=== PATIENT | female | born 1955 | race Caucasian/White ===

== ENCOUNTER → 2020-06-06 | Emergency (ER) | payer OTHER ==
[~2020-06-06] VITALS: Ht 154.9 cm; Wt 66.2 kg
[~2020-06-06] MED LIST: LAMOTRIGINE; TOPROL XL25 M1
== END | disposition home or self-care (01) ==
LOC: ER 19:52
DX: S01.511A Laceration without foreign body of lip, initial encounter (principal); T14.8XXA Other injury of unspecified body region, initial encounter; W18.39XA Other fall on same level, initial encounter; Y93.01 Activity, walking, marching and hiking; Y92.480 Sidewalk as the place of occurrence of the external cause; Y99.8 Other external cause status

== ENCOUNTER 2021-03-25 08:00 | Outpatient (CLI) | payer OTHER | END 2021-03-25 08:30 | disposition home or self-care (01) | LOC: PPH VACUNA 08:00 | PROVIDERS: ATTEND Emergency Medicine Pediatric Emergency Medicine | DX: Z23 Encounter for immunization (principal) ==

== ENCOUNTER 2021-07-29 13:00 | Outpatient (CLI) | payer OTHER | END 2021-07-29 13:30 | disposition home or self-care (01) | LOC: PPH VACUNA 13:00 | PROVIDERS: ATTEND Emergency Medicine Pediatric Emergency Medicine | DX: Z23 Encounter for immunization (principal) ==

== ENCOUNTER 2022-02-24 10:09 | Outpatient (CLI) | payer OTHER | END 2022-02-24 10:19 | disposition home or self-care (01) | LOC: PPH VACUNA 10:09 | PROVIDERS: ATTEND Emergency Medicine Pediatric Emergency Medicine | DX: Z23 Encounter for immunization (principal) ==